=== PATIENT | female | born 1965 | race Caucasian/White ===

== ENCOUNTER 2017-07-28 17:01 | Emergency (ER) | payer BC ==
[~2017-07-28] VITALS: Ht 165.1 cm; Wt 62.6 kg
[2017-07-28] MEDS ORDERED: LEVOTHYROXINE25 MCG PO (17:10)
== END 2017-07-28 19:45 | disposition home or self-care (01) ==
LOC: ER 17:01
DX: N39.0 Urinary tract infection, site not specified (principal)